=== PATIENT | male | born 1990 | race Caucasian/White ===

== ENCOUNTER → 2023-01-02 | Outpatient (REF) | payer SELFPAY ==
[2023-01-02 11:09] LABS: SEMEN APPEARANCE OPAQUE (OPAQUE); SEMEN VISCOSITY LIQUID (LIQUID); SEMEN VOLUME 6.4 ml (2.0-5.0); SEMEN pH 8.5 (7.0-8.0)
[2023-01-02 11:10] LABS: SPERM CONCENTRATION 96.8 M/ml (>=15.0); WBC CONCENTRATION <=1 M/ml (<=1 M/ml)
== END ==
LOC: M SFHCWAGY 10:39
PROVIDERS: ATTEND Nurse Practitioner Family
DX: N46.9 Male infertility, unspecified (principal)